=== PATIENT | female | born 1990 | race Caucasian/White ===

== ENCOUNTER 2018-04-06 08:17 | Inpatient (IN) | payer OTHER ==
--- NOTE | 2018-04-06 09:04 | History and Physical Report ---
History of Present Illness Date of examination: 04/06/18 Date of admission: 04/06/18 08:19 Chief complaint: Leaking of water from vagina since 7:00 AM today. History of present illness: 28 year old presents to L&D with complaint of leaking clear fluid from vagina since 07:00 this morning. Pt. reports water is still leaking. Pt. denies vaginal bleeding. Pt. reports mild contractions. Pt. reports active movement. Pt. denies complications or problems with this . Current medications: PNV. NKDA. labs: A+, RI, HIV negative, Hepatitis B Surface Antigen negative, RPR nonreactive, antibody screen negative, quad screen negative, sugar test normal, GBS negative, GC negative, CT negative. 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 denies: smoking, alcohol abuse, prescription drug abuse, IV drug use - Obstetrical History Expected Date of Delivery: 04/30/18 Actual Gestation: 36 Week(s) 4 Day(s) : 3 Para: 2 Hx # Term Pregnancies: 2 Number of Pregnancies: 0 Spontaneous Abortions: 0 Induced : 0 Number of Living Children: 2 Medications and Allergies Allergies Allergy/AdvReac Type Severity Reaction Status Date / Time No Known Allergies Allergy Verified 04/06/18 09:09 Home Medications Medication Instructions Recorded Confirmed Last Taken Type Calcium-Pnv 28-1-250 mg Sftgl 1 tab PO DAILY 02/21/16 02/21/16 1 Day Ago History ~02/20/16 Review of Systems All systems: negative (leaking of water from vagina and contractions since 07: 00 today) - Vital Signs Vital signs: Vital Signs Pulse Pulse Ox 101 H 98 04/06/18 08:41 04/06/18 08:41 Temp Pulse Resp BP Pulse Ox 99 H 115/65 98 04/06/18 08:56 04/06/18 08:44 04/06/18 08:56 - Physical Exam Breasts: Positive: deferred Cardiovascular: Regular rate, Normal S1, Normal S2 Lungs: Positive: Clear to auscultation Abdomen: Positive: normal appearance, soft. Negative: distention, tenderness, guarding Genitourinary (Female): Positive: normal external genitalia, other (no lesions seen on careful exam with bright light upon admission) Vulva: both: normal Vagina: Positive: other (clear fluid seen coming from vagina) Cervix: Positive: other (60/-2/cephalic (cephalic presentation confirmed by bedside ultrasound)) Uterus: Positive: enlarged Adnexa: both: normal Extremities: Positive: normal - Obstetrical FHR: category 1 Uterine Contraction Monitor Mode: External Cervical Dilatation: 1 Cervical Effacement Percentage: 60 station: -2 Uterine Contraction Pattern: Irregular Uterine Contraction Intensity: Mild Results All other labs normal. Assessment and Plan A: at 36 weeks, 4 days gestation. Spontaneous rupture of membranes. GBS negative. Not in active labor. P: Admit. Pitocin augmentation of labor. Anticipate .
[2018-04-06] MEDS ORDERED: SUBLIMAZE IV ONE (09:16)
[2018-04-06] MEDS ORDERED: PITOCin/NS 30 UNIT/500ML 30,000 MILLIUNITS/500 ML BAG IV ONE (09:16)
[2018-04-06] MEDS ORDERED: POLYCILLIN/NS 2 GM/100 ML 2 GM/100 ML BAG IV ONE (09:30)
[2018-04-06] MEDS: LACTATED RINGERS 1,000 ML IV SCH ×2 (09:52→13:50)
--- NOTE | 2018-04-06 09:58 | Event Note ---
Date: 04/06/18 Pt. is afebrile but temperature is 99.3. No uterine tenderness. No vaginal discharge or odor. No fever or chills. IV fluid bolus of Lactated Ringers ordered. IV Ampicillin ordered.
[2018-04-06] MEDS ORDERED: PITOCin/NS 20 UNIT/1000ML DRIP 20 UNITS/1,000 ML BAG IV SCH (10:00)
[2018-04-06 11:01] LABS: Basophils % (Auto) 0.4 % (0.0-1.8); Eosinophils % (Auto) 0.5 % (0.0-4.3); Hemoglobin 10.8 gm/dl (10.1-14.3); Lymphocytes # (Auto) 1.7 K/mm3 (1.2-5.4); Lymphocytes % (Auto) 20.1 % (13.4-35.0); Mean Corpuscular HGB Conc 33 % (30-34); Mean Corpuscular Hemoglobin 29 pg (28-32); Mean Corpuscular Volume 88 fl (79-97); Monocytes # (Auto) 0.7 K/mm3 (0.0-0.8); Monocytes % (Auto) 8.3 % (0.0-7.3); Platelet Count 166 K/mm3 (140-440); Red Blood Count 3.74 M/mm3 (3.65-5.03); Red Cell Distribution Width 13.7 % (13.2-15.2)
[2018-04-06] MEDS: AMPICILLIN/NS 1 GM/50 ML 1 GM/50 ML BAG IV SCH ×2 (14:26→18:10)
[2018-04-06] MEDS ORDERED: POLYCILLIN 1,000 MG in NACL 0.9% 50 ML IV SCH (14:30)
--- NOTE | 2018-04-06 15:20 | Event Note ---
Date: 04/06/18 Pt. had several variable FHR decelerations with rapid return to FHR baseline; normal baseline rate and moderate variability. Patient positioned in left lateral position and O2 applied per face mask. Pitocin decreased from 14 milliunits to 8 milliunits. Abdomen palpates soft between contractions and contractions are moderate every 2-3 minutes. Fluid remains clear. Cervix 3-4/80/ -2. IUPC placed to help evaluate strength and adequacy of contractions and also to allow for amnioinfusion if necessary. FSE applied to better trace FHR. FHR baseline is 150 with moderate variability and accelerations. VSS.
[2018-04-06] MEDS ORDERED: NARCAN 2 MG/2 ML ONE (16:30)
[2018-04-06] MEDS ORDERED: SUBLIMAZE ONE (16:30)
[2018-04-06] MEDS ORDERED: NACL 0.9% IR SCH (17:00)
[2018-04-06] MEDS ORDERED: NACL 0.9% 1000 ML 1,000 ML ONE (17:27)
[2018-04-06] MEDS: PEPCID PO SCH (18:49)
[2018-04-06] MEDS ORDERED: LANSINOH TP PRN ×2 (19:49)
[2018-04-06] MEDS ORDERED: TUCKS PAD TP PRN (19:49)
[2018-04-06] MEDS ORDERED: PHENERGAN PR PRN (19:49)
[2018-04-06] MEDS ORDERED: DULCOLAX PR PRN (19:49)
[2018-04-06] MEDS ORDERED: MILK OF MAGNESIA PO PRN (19:49)
[2018-04-06] MEDS ORDERED: TYLENOL PO PRN (19:49)
[2018-04-06] MEDS ORDERED: ZOFRAN IV PRN (19:49)
[2018-04-06] MEDS ORDERED: BENADRYL PO PRN (19:49)
--- NOTE | 2018-04-06 19:58 | Procedure Note ---
OB Delivery Note - Vaginal Delivery presentation: vertex Delivery position: OA Intrapartum events: labor-<37 weeks Delivery augmentation: pitocin Delivery monitor: external FHT, external uterine, internal FHT, internal uterine Route of delivery: Delivery placenta: spontaneous Delivery cord: nuchal cord, true knot, 3 umbilical vessels (double nuchal cord, true knot) Episiotomy: none Delivery laceration: none Anesthesia: none Delivery comments: of liveborn male over intact perineum weighing 6 lb. 11 oz. with apgars of 8/9. Tight double nuchal cord; true knot in cord. 3 vessel cord. NICU present for delivery due to late delivery. 3 vessel cord double clamped and cut and baby taken to warmer for further suctioning. Spontaneous delivery of intact placenta and membranes. EBL 250 ml. Fundus firm and midline. Pitocin to IV fluids after delivery of placenta. No lacerations noted. Sponge count correct; vaginal sweep negative.
[2018-04-06] MEDS ORDERED: SODIUM CHLORIDE FLUSH SYRINGE 10 ML IV NR (20:00)
[2018-04-06] MEDS: MOTRIN PO SCH (22:05)
[2018-04-07] MEDS: MOTRIN PO SCH ×2 (05:13→20:20)
[2018-04-07 08:55] LABS: Hematocrit 28.1 % (30.3-42.9); Hemoglobin 9.5 gm/dl (10.1-14.3)
[2018-04-07] MEDS: PEPCID PO SCH (10:03)
[2018-04-07] MEDS: PRENATAL VITAMIN PO SCH (10:03)
--- NOTE | 2018-04-07 10:03 | Progress Note ---
Assessment and Plan - Patient Problems (1) Status post normal vaginal delivery Current Visit: Yes Status: Acute Plan to address problem: PPD 1 - stable Continue routine PP orders Discharge to home later today F/U at [facility] in 6 weeks for PP exam (2) Anemia in puerperium, baby delivered during current episode of care Current Visit: Yes Status: Acute Plan to address problem: Asymptomatic Start iron therapy with Ferrous sulfate 325mg PO qd Subjective - Subjective Date of service: 04/07/18 Principal diagnosis: s/p , PPD 1 Patient reports: appetite normal, voiding normally, pain well controlled, ambulating normally : doing well, bottle feeding Objective - Vital Signs Latest vital signs: Vital Signs Temp Pulse Resp BP BP Pulse Ox 04/07/18 07:50 97.5 F L 77 16 99/60 98 04/07/18 05:13 16 04/07/18 03:58 98.4 F 78 18 101/52 04/07/18 00:28 98.5 F 87 18 100/55 04/06/18 23:05 16 04/06/18 22:05 20 04/06/18 21:59 99.4 F 75 16 113/60 04/06/18 21:12 84 96/55 04/06/18 20:57 72 96/60 04/06/18 20:42 86 99/56 04/06/18 20:27 84 99/57 04/06/18 20:12 82 99/55 04/06/18 19:57 91 H 116/56 04/06/18 19:42 87 103/55 04/06/18 19:34 105 H 105/51 04/06/18 19:27 118 H 133/60 04/06/18 19:12 104 H 108/60 04/06/18 18:57 102 H 109/62 04/06/18 18:51 98.7 F 18 04/06/18 18:43 87 112/66 04/06/18 18:28 89 112/58 04/06/18 18:12 95 H 104/60 04/06/18 17:58 91 H 105/64 04/06/18 17:42 93 H 98/66 04/06/18 17:27 100 H 104/70 04/06/18 17:23 99.2 F 18 04/06/18 17:12 83 93/52 04/06/18 17:05 88 92/51 04/06/18 16:57 78 89/53 04/06/18 16:49 93 H 94/52 04/06/18 16:42 90 87/50 04/06/18 16:41 93 H 87/53 04/06/18 16:33 92 H 104/55 04/06/18 16:03 90 90/53 04/06/18 16:00 99.2 F 16 04/06/18 15:33 80 98/54 04/06/18 15:04 90 113/56 04/06/18 14:33 97 H 111/61 04/06/18 14:29 99.1 F 18 04/06/18 14:02 91 H 110/64 04/06/18 13:52 102 H 110/64 04/06/18 13:33 100 H 92/51 04/06/18 13:04 100 H 100/56 04/06/18 12:33 100 H 92/53 04/06/18 12:21 98.8 F 18 04/06/18 12:02 95 H 111/61 04/06/18 10:27 99.2 F 18 Intake and Output 04/06/18 04/07/18 04/07/18 23:59 07:59 15:59 Intake Total 5.833 480 Output Total 800 450 Balance 5.833 -320 -450 Intake: IV 5.833 PITOCin/NS 30 UNIT/500ML 5.833 30,000 milliunits In 500 ml @ 2 MILLIUNITS/MIN 2 mls/hr IV DIRECT ONE Rx#:[id number] Intake, Free Water 480 Output: Urine 800 450 Void 800 450 Other: Total, Output Amount 400 450 # Voids Void 1 Estimated Blood Loss 150 - Exam Abdomen: Present: normal appearance, soft Vulva: both: normal Uterus: Present: normal, firm, fundal height at umbilicus Extremities: Present: normal - Labs Labs: Abnormal lab results 04/06/18 04/07/18 Range/Units 09:00 08:18 Hgb 9.5 L (10.1-14.3) gm/dl Hct 28.1 L (30.3-42.9) % [place] % (Auto) 8.3 H (0.0-7.3) % Seg Neutrophils % 70.7 H (40.0-70.0) %
--- NOTE | 2018-04-07 10:08 | Discharge Summary ---
Providers - Providers Date of Admission: 04/06/18 08:19 Date of discharge: 04/07/18 Attending physician: SEAN HILL MD Primary care physician: SEAN HILL MD Hospitalization Reason for admission: IUP - , rupture of membranes (SROM) Delivery: Episiotomy: none Laceration: none complications: none Discharge diagnosis: delivery [place] baby: male Hospital course: Uncomplicated Condition at discharge: Stable Disposition: DC-01 TO HOME OR SELFCARE - Discharge Diagnoses (1) Status post normal vaginal delivery Status: Acute (2) Anemia in puerperium, baby delivered during current episode of care Status: Acute Comment: Asymptomatic. Continue iron therapy Plan - Discharge Medications Prescriptions: Ferrous Sulfate [Feosol 325 MG tab] 325 mg PO QDAY #30 tablet - Provider Discharge Summary Activity: routine, no sex for 6 weeks, no heavy lifting 4 weeks, no strenuous exercise Diet: routine Instructions: routine Additional instructions: [] Smoking cessation referral if applicable(refer to patient education folder for contact #) [] Refer to [facility]'s [facility] Booklet Call your doctor immediately for: * Fever > 100.5 * Heavy vaginal bleeding ( >1 pad per hour) * Severe persistent headache * Shortness of breath * Reddened, hot, painful area to leg or breast * Drainage or odor from incision. * Keep incision clean and dry at all times and follow doctor's instructions regarding bathing/showering - Follow up plan Follow up: SEAN HILL MD [Primary Care Provider] - 6 Weeks (Follow up at [facility] in 6 weeks for exam)
[2018-04-07] MEDS ORDERED: FEOSOL PO SCH (11:00)
[2018-04-08] MEDS: MOTRIN PO SCH ×2 (01:30→18:47)
[2018-04-08] MEDS: PRENATAL VITAMIN PO SCH (10:37)
[2018-04-08] MEDS: PEPCID PO SCH (10:37)
[2018-04-08 19:26] VITALS: BP 99/55
== END 2018-04-08 21:00 | disposition home or self-care (01) | DRG 775 ==
LOC: TRG 08:17 → LD 08:19 → OB 21:36
PROVIDERS: ADMIT Obstetrics & Gynecology; ATTEND Obstetrics & Gynecology
PROC: 10E0XZZ Delivery of Products of Conception, External Approach (ICD-10-PCS; principal; 2018-04-06)
DX: O42.913 Preterm premature rupture of membranes, unspecified as to length of time between rupture and onset of labor, third trimester (principal); Z3A.36 36 weeks gestation of pregnancy; Z37.0 Single live birth; O76 Abnormality in fetal heart rate and rhythm complicating labor and delivery; O69.1XX0 Labor and delivery complicated by cord around neck, with compression, not applicable or unspecified; O69.2XX0 Labor and delivery complicated by other cord entanglement, with compression, not applicable or unspecified; Z80.9 Family history of malignant neoplasm, unspecified; O90.81 Anemia of the puerperium; D64.9 Anemia, unspecified
CPT/HCPCS: 36415; 85014; 85018; 85025; 86850; 86900; 86901; 88307; 99211; G0463; J0290; J2310; J2590; J3010; J7030; J7120